=== PATIENT | female | born 1955 | race Caucasian/White ===

== ENCOUNTER → 2016-07-10 | Outpatient (CLI) | payer MEDICAID | LOC: FIMAGING 09:28 | DX: R22.2 Localized swelling, mass and lump, trunk (principal); M54.2 Cervicalgia ==

== ENCOUNTER → 2016-10-16 | Outpatient (CLI) | payer MEDICAID ==
[~2016-10-16] MED LIST: IOPAMIDOL (ISOVUE-300) 100 ML BTL ONE
== END ==
LOC: FIMAGING 10:44
PROVIDERS: ATTEND Internal Medicine Gastroenterology
DX: K59.00 Constipation, unspecified (principal); K42.9 Umbilical hernia without obstruction or gangrene
CPT/HCPCS: Q9967

== ENCOUNTER → 2017-03-10 | Outpatient (CLI) | payer MEDICAID | LOC: FIMAGING 11:53 | DX: Z12.31 Encounter for screening mammogram for malignant neoplasm of breast (principal); E04.1 Nontoxic single thyroid nodule | CPT/HCPCS: G0202 ==

== ENCOUNTER → 2017-12-22 | Outpatient (CLI) | payer MEDICAID | LOC: FIMAGING 08:42 | PROVIDERS: ATTEND Nurse Practitioner Family | DX: R14.0 Abdominal distension (gaseous) (principal); D25.9 Leiomyoma of uterus, unspecified; Z90.721 Acquired absence of ovaries, unilateral ==

== ENCOUNTER → 2018-01-12 | Outpatient (CLI) | payer OTHER, MEDICAID | LOC: FIMAGING 11:08 | PROVIDERS: ATTEND Nurse Practitioner Family | DX: K59.00 Constipation, unspecified (principal); K57.30 Diverticulosis of large intestine without perforation or abscess without bleeding; K42.9 Umbilical hernia without obstruction or gangrene | CPT/HCPCS: 74177; Q9967; 82565-PO ==

== ENCOUNTER → 2018-04-15 | Outpatient (CLI) | payer OTHER, MEDICAID | LOC: FIMAGING 12:17 | DX: Z12.31 Encounter for screening mammogram for malignant neoplasm of breast (principal); M17.0 Bilateral primary osteoarthritis of knee ==

== ENCOUNTER → 2018-05-14 | Outpatient (CLI) | payer OTHER, MEDICAID | LOC: FIMAGING 13:38 | PROVIDERS: ATTEND Nurse Practitioner Family | DX: R92.8 Other abnormal and inconclusive findings on diagnostic imaging of breast (principal) ==